=== PATIENT | male | born 1930 | race Caucasian/White ===

== ENCOUNTER 2017-12-13 06:04 | Emergency (ER) | payer MEDICARE ==
[~2017-12-13] VITALS: Ht 182.9 cm; Wt 75.0 kg
[~2017-12-13 06:04] MED LIST: (None)3.5 GM OD; ALBUTEROL S2.5 MG/.5 IN; ASPIRIN EC325 MG PO; COMBIVENT INH; DIOVAN320 MG PO; DOCUSATE SOD100 MG PO; DUONEB IN; FERROUS SULFAT325 MG PO; FLEXERIL OR; GENTAMICIN15 ML/BTL OP; HYDROCHLORO25 MG/TAB PO; KEFLEX500 MG PO; LEVAQUIN750 MG PO; LISINOP/HCTZ1 TA1 PO; LOPRESSOR25 MG PO; LOPRESSOR50 MG PO; LORTAB 5-325 MG1 TAB PO; METOPROL TAR100 M1 PO; METOPROL TAR25 MG PO; MUCINEX MAXIM1200 MG PO; OMEPRAZOLE20 MG PO; PERCOCET 10/31 COMBO PO; POOR HISTORIAN; PROVENTIL0.083 % INH; SIMVASTATIN40 MG PO; SULFACET SOD10 % OP; SYMBICORT1 AE1 IN; ULTRAM50 M1 PO; VENTOLIN HFA IN; [UNRECOGNIZED DRUG - REMARK]
[2017-12-13 06:40] LABS: IMMATURE GRANULOCYTES 0.2 % (0.0-5.0); MEAN CELL VOLUME 90.1 fL CALC (80.0-100.0); MEAN CORPUSCULAR HGB 28.1 pG CALC (26.0-32.0); MEAN CORPUSCULAR HGB CONC 31.2 g/L CALC (32.0-36.0); NEUT# 2.7 thou/uL (1.82-7.42); RED BLOOD COUNT 3.84 mill/uL (4.70-6.10); RED CELL DISTRI WIDTH 14.6 % (11.5-15.5)
[2017-12-13 06:41] LABS: HEMATOCRIT 34.6 % (39.0-50.0); HEMOGLOBIN 10.8 g/dl (14.0-18.0)
[2017-12-13 07:04] LABS: ALBUMIN 3.4 g/dL (3.2-5.0); ALKALINE PHOSPHATASE 84 u/l (38-126); ANION GAP 12 (6-22 (CALC)); BILIRUBIN, TOTAL 0.4 mg/dL (0.0-1.4); BUN 40 mg/dL (8-23); BUN/CREATININE RATIO 44 (12-20 (CALC)); CARBON DIOXIDE 31 mmol/l (22-30); CHLORIDE 101 mmol/l (95-108); CREATININE 0.9 mg/dL (0.7-1.3); GFR > 60 ML/MIN (>=60 (CALC)); GFR FOR AFR.AMER. > 60 ML/MIN (>=60 (CALC)); POTASSIUM 4.4 mmol/l (3.5-5.1); SGOT/AST 26 u/l (19-48); SODIUM 140 mmol/l (137-146); TOTAL PROTEIN 7.4 g/dL (6.3-8.2)
[2017-12-13 07:07] LABS: MYOGLOBIN 167 ng/mL (0 - 121)
[2017-12-13] MEDS ORDERED: FUROSEMIDE40 MG PO (08:18)
[2017-12-13 08:19] LABS: URINE BILIRUBIN - DIPSTICK NEGATIVE (NEGATIVE); URINE BLOOD DIPSTICK NEGATIVE (NEGATIVE); URINE CLARITY CLEAR; URINE COLOR YELLOW; URINE GLUCOSE - DIPSTICK NEGATIVE (NEGATIVE); URINE KETONE NEGATIVE (NEGATIVE); URINE LEUK ESTERASE NEGATIVE (NEGATIVE); URINE NITRITE - DIPSTICK NEGATIVE (Negative); URINE PROTEIN - DIPSTICK NEGATIVE (NEG-TRACE); URINE UROBILINOGEN - DIPSTICK 0.2 E.U./dL (0.2)
[2017-12-13] MEDS ORDERED: POT CHLORIDE20 ME3 PO (08:23)
[2017-12-13] MEDS ORDERED: VITAMIN C500 M6 PO (08:24)
[2017-12-13] MEDS ORDERED: PROAIR HFA108 MCG/AC IN (08:31)
[2017-12-13 11:03] VITALS: BP 132/68
== END 2017-12-13 11:27 | disposition home or self-care (01) ==
LOC: ED 06:04
PROVIDERS: Emergency Medicine
PROC: 0HQCXZZ Repair Left Upper Arm Skin, External Approach (ICD-10-PCS; principal; 2017-12-13)
DX: S41.112A Laceration without foreign body of left upper arm, initial encounter (principal); S69.82XA Other specified injuries of left wrist, hand and finger(s), initial encounter; S00.83XA Contusion of other part of head, initial encounter; W19.XXXA Unspecified fall, initial encounter; Y92.008 Other place in unspecified non-institutional (private) residence as the place of occurrence of the external cause

== ENCOUNTER 2017-12-13 18:11 | Inpatient (IN) | payer MEDICARE ==
[~2017-12-13] VITALS: Ht 182.9 cm; Wt 50.0 kg
[~2017-12-13 18:11] MED LIST changes: +FUROSEMIDE40 MG PO; +POT CHLORIDE20 ME3 PO; +PROAIR HFA108 MCG/AC IN; +VITAMIN C500 M6 PO
--- NOTE | 2017-12-13 18:11 | NUR ---
PT ARRIVES VIA EMS, ALERT AND ORIENTED TO SELF. PT HAD UNWITNESSED FALL AT HOME ,PT STATES HE DOES NOT REMEMBER FALLING. DAUGHTER STATES HE WAS SITTING IN RECLINER AND SHE WENT NEXT DOOR TO GET HER SON AND PT WAS ON THE FLOOR WITH LT HAND BLEEDING. DAUGHTER STATES PT WAS ALERT AND COHERENT.
[2017-12-13 18:59] LABS: HEMATOCRIT 33.1 % (39.0-50.0); HEMOGLOBIN 10.3 g/dl (14.0-18.0); IMMATURE GRANULOCYTES 0.3 % (0.0-5.0); MEAN CELL VOLUME 90.9 fL CALC (80.0-100.0); MEAN CORPUSCULAR HGB 28.3 pG CALC (26.0-32.0); MEAN CORPUSCULAR HGB CONC 31.1 g/L CALC (32.0-36.0); NEUT# 4.92 thou/uL (1.82-7.42); RED BLOOD COUNT 3.64 mill/uL (4.70-6.10); RED CELL DISTRI WIDTH 14.7 % (11.5-15.5)
--- NOTE | 2017-12-13 19:15 | NUR ---
PT GHAS OLD DRIED FECES IN THE JEANS WHICH ARE REMOVED,PEPITO CARE DONE THERE IS A 2MM SKIN DERMAL PRESSURE SORE ON THE L BUTTOCKS THAT IS CLEAN PINK WITHOUT DRAINAGE OR ODOR.SKIN CARE AND SKIN DSG APPLIED.THERE IS A SKIN TEAR ON THE L CHEST WALL THAT IS CLEANED STERISTRIPS APPLIED AND NEOSPORIN OINT WITH DSD APPLIED.DR Calvin INFORMED OF BOTH WOUNDS
[2017-12-13 19:18] LABS: ALBUMIN 3.1 g/dL (3.2-5.0); ALKALINE PHOSPHATASE 69 u/l (38-126); ANION GAP 12 (6-22 (CALC)); BILIRUBIN, TOTAL 0.5 mg/dL (0.0-1.4); BUN 43 mg/dL (8-23); BUN/CREATININE RATIO 42 (12-20 (CALC)); CARBON DIOXIDE 31 mmol/l (22-30); CHLORIDE 98 mmol/l (95-108); GFR > 60 ML/MIN (>=60 (CALC)); GFR FOR AFR.AMER. > 60 ML/MIN (>=60 (CALC)); SGOT/AST 26 u/l (19-48); SODIUM 135 mmol/l (137-146); TOTAL PROTEIN 6.8 g/dL (6.3-8.2)
[2017-12-13 19:25] LABS: POTASSIUM 5.6 mmol/l (3.5-5.1)
[2017-12-13 19:30] LABS: MYOGLOBIN 223 ng/mL (0 - 121)
--- NOTE | 2017-12-13 20:30 | NUR ---
PT REC'ED WARM BLANKET ALERT AND APPROPRIATE CONVERSATIONS NO DISTRESS W/P/D SKIN
--- NOTE | 2017-12-13 21:15 | NUR ---
SBAR printed to floor
--- NOTE | 2017-12-13 22:05 | NUR ---
PHONE REPORT TO NURSE JURADO ON MS2
--- NOTE | 2017-12-13 22:08 | NUR ---
PT TRANSPORTED TO [facility] ON TELE IN STABLE CONDITION
[2017-12-13 22:20] VITALS: BP 128/83
--- NOTE | 2017-12-13 22:20 | NUR ---
PT ARRIVED TO THE FLOOR VIA STRETCHER ACCOMPANIED BY KATELYNN AND ED NURSE. PT APPEARS TO BE IN STABLE CONDITION. PT TRANSFERRED TO HOSPITAL UNIT BED FROM STRETCHER AND CLEANED OF SMALL AMOUNT OF INCONTINENT STOOL AND PEPITO-CARE. PT HAS SMALL PRESSURE WOUND TO L.BUTTOCKS AND DRESSINGS TO LEFT ARM IN TWO PLACES AND L.HAND. DRESSING TO BACK OF RIB CAGE/FLANK. EDEMA NOTED TO FEET/BILAT AND REDNESS TO ANKLES. BRUISING TO HEAD AND FACE AROUND EYE SOCKETS AND TO LEFT RELIGIOUS AREA. BRUISING TO L ARM AND R.SHOULDER BLADE. PT DENIES ANY PAIN OR DISCOMFORT AT THIS TIME. LOCX3, BUT PT'S GRANDAUGHTER REPORTS THAT HE CAN GET COMFUSED AND FORGETFUL AND MAY NEED THE BED ALARM ON FOR SAFETY MEASURE/BED ALARM ON. PT POSITIONED FOR COMFORT, PROVIDED PO FLUIDS AND ORIENTED TO ROOM,CALL SYSTEM,LIGHTS AND REPORTING NEEDS. WILL CONTINUE TO REINFORCE NEEDED. BED ALARM ON AND DOOR OPEN. BED IN LOWEST POSITION.
--- NOTE | 2017-12-14 00:15 | NUR ---
PT ASSISTED USING URINAL, 25CC OF DARK YELLOW URINE EMPTIED FROM URINAL. DENIES ANY OTHER NEEDS. TWO PILLOWS PROVIDED.
[2017-12-14 01:00] VITALS: BP 128/70
--- NOTE | 2017-12-14 02:51 | NUR ---
PT IS SLEEPING AT THIS TIME. NO S/S OF DISTRESS NOTED. CALL LIGHT AT SIDE AND BED ALARM ON.
--- NOTE | 2017-12-14 04:00 | NUR ---
PT CLEANED OF INCONTINENT STOOL SMALL AMOUNT, PT USED URINAL OUTPUT OF 125 CLEAR DARK YELLOW URINE. PICTURES TAKEN FOR CHART AND DRESSING TO COCCYX AREA FOR PRESSURE WOUND STAGE 2. BARRIER CREAM TO RECTAL AREA FOR REDNESS. PT REPOSITIONED FOR COMFORT AND RELIEF OF PRESSURE POINTS TO SPINE AND COCCYX. CALL LIGHT AND BED ALARM IN PLACE.
[2017-12-14 04:06] VITALS: BP 134/74
--- NOTE | 2017-12-14 07:15 | NUR ---
BEDSIDE REPORT RECEIVED BY LULY. PT IS SLEEPING IN BED WITH NO S/S OF DISTRESS NOTED. BED ALARM IN PLACE FOR SAFETY AND CALL LIGHT IN REACH.
[2017-12-14 07:48] VITALS: BP 116/58
--- NOTE | 2017-12-14 08:00 | NUR ---
ASSESSMENT DONE TELE IN PLACE. LUNG SOUND DIMINISHED. PT IS A&O X3 BUT FORGETFUL AT TIMES. PT DENIES PAIN AT THIS TIME. PT HAS BRUISES IN HIS FACE. PT STATED THAT HE HAD FELL AT HOME YESTERDAY. NS 100 ML/HR INFUSING WELL. SAFETY PRECAUTIONS REINFORCED AND CALL LIGHT IN REACH. BED ALARM IN PLACE.
[2017-12-14 09:36] LABS: HEMATOCRIT 29.9 % (39.0-50.0); HEMOGLOBIN 9.3 g/dl (14.0-18.0); MEAN CELL VOLUME 91.4 fL CALC (80.0-100.0); MEAN CORPUSCULAR HGB 28.4 pG CALC (26.0-32.0); MEAN CORPUSCULAR HGB CONC 31.1 g/L CALC (32.0-36.0); RED BLOOD COUNT 3.27 mill/uL (4.70-6.10); RED CELL DISTRI WIDTH 14.7 % (11.5-15.5)
[2017-12-14 10:18] LABS: BUN 30 mg/dL (8-23); BUN/CREATININE RATIO 37 (12-20 (CALC)); CARBON DIOXIDE 27 mmol/l (22-30); CHLORIDE 103 mmol/l (95-108); CREATININE 0.8 mg/dL (0.7-1.3); GFR > 60 ML/MIN (>=60 (CALC)); GFR FOR AFR.AMER. > 60 ML/MIN (>=60 (CALC)); SODIUM 137 mmol/l (137-146)
[2017-12-14 10:21] LABS: ANION GAP 11 (6-22 (CALC)); POTASSIUM 4.1 mmol/l (3.5-5.1)
[2017-12-14 10:35] LABS: URINE BILIRUBIN - DIPSTICK NEGATIVE (NEGATIVE); URINE BLOOD DIPSTICK TRACE-INTACT (NEGATIVE); URINE COLOR YELLOW; URINE GLUCOSE - DIPSTICK NEGATIVE (NEGATIVE); URINE KETONE NEGATIVE (NEGATIVE); URINE LEUK ESTERASE NEGATIVE (NEGATIVE); URINE NITRITE - DIPSTICK NEGATIVE (Negative); URINE PH 5.5 (4.5-8.0); URINE PROTEIN - DIPSTICK NEGATIVE (NEG-TRACE); URINE UROBILINOGEN - DIPSTICK 0.2 E.U./dL (0.2)
[2017-12-14 10:37] LABS: URINE CLARITY CLEAR
--- NOTE | 2017-12-14 11:36 | NUR ---
EVAL WAS HELD OFF IN THE AM UNTIL X-RAY RESULT IS OUT, ADVISED BY .
[2017-12-14 11:55] VITALS: BP 101/48
--- NOTE | 2017-12-14 12:00 | NUR ---
PT IS EATING HIS LUNCH WITH NO S/S OF DISTRESS NOTED. TELE IN PLACE. PT DENIES PAIN AT THIS TIME. ICE PACK IN PLACE FOR RIGHT ANKLE. PT REFUSED ICE BACK ON LEFT SHOULDER. BED ALARM IN PLACE AND CALL LIGHT IN REACH.
--- NOTE | 2017-12-14 13:40 | NUR ---
JIMMY KABA AT BEDSIDE TO DISCUSS POC WITH GRANDDAUGHTER. PT IS SLEEPING IN BED WITH NO S/S OF DISTRESS NOTED.
--- NOTE | 2017-12-14 14:55 | NUR ---
O.T. RECEIVED ORDER FOR O.T. EVALUATION AND ATTEMPTED AT 11 A.M., HOWEVER, PER JESUS Francis HOLD ON THERAPY DUE TO POSSIBLE ANKLE/FOOT AND SHOULDER FRACTURES.
[2017-12-14 15:00] VITALS: BP 115/61
[2017-12-14 16:16] LABS: CHOLESTEROL HDL RATIO 2.7 (<4.4 (CALC))
--- NOTE | 2017-12-14 16:33 | NUR ---
MEDICATED PT WITH TYLENOL FOR PAIN SEE EMAR. PT DENIES ANY OTHER NEEDS AT THIS TIME. CALL LIGHT IN REACH. BED ALARM IN PLACE. GRANDDAUGHTER IN ROOM.
--- NOTE | 2017-12-14 19:39 | NUR ---
REPORT RECEIVED FROM DAY NURSE, PT SEEN AT BEDSIDE. HE IS AWAKE, BUT NO S/O DISTRESS AT THIS TIME. DENIES PAIN/N/V OR ANY OTHER DISTRESSES. CALL LIGHT NEXT TO HAND, BED ALARM ON.
[2017-12-14 20:00] VITALS: BP 113/56
--- NOTE | 2017-12-14 21:55 | NUR ---
AIDE IN WITH PT, CLEANED HIM OF INCONTINENT STOOL, ASSISTED IN USE OF URINAL. BEDDING CHANGED AND PT REPOSITIONED. PT DENIES PAIN AT THIS TIME. AND SHOWS NO S/S OF DISTRESS. DRESSING TO ARMS CHANGED AND PICTURES PLACED IN CHART. LEFT ARM HAS A GREAT AMOUNT OF BRUISING AND SKIN TEAR AREAS AROUND BRACHIAL AREA OF ARM. LEFT HAND DRESSING ALSO CHANGED, HAND HAS A LARGE SUTURED WOUND BETWEEN THUM AND INDEX FINGER. PT POSITIONED FOR COMFORT. LUNG SOUNDS ARE CLEAR, ABD FIRM NON-TENDER W/ACTIVE BOWEL SOUNDS. 2+EDEMA TO FEET BILATERALLY, BRUISES TO KNEES AND THROUGHOUT. MID SPINE AREA IS REDDENED FROM PRESSURE POINT, COCCYX HAS SMALL DECUBITIS ULCER WOUND ON LEFT BUTTOCK AREA AND IS REDDENED. WILL CONTINUE TO MONITOR AND REPOSITION NEEDED. CALL LIGHT IS AT SIDE AND PT REORIENTED TO ITS USE. BED ALARM IS ON.
[2017-12-15 00:12] VITALS: BP 120/63
--- NOTE | 2017-12-15 02:00 | NUR ---
PT IS SLEEPING IN LOW FOWLERS POSITION WITH LIGHTS AND TV OFF. IV FLUIDS ARE RUNNING ORDERS PROVIDE. NO S/S OF DISTRESS NOTED. PT REPOSITIONED AND CALL LIGHT AT SIDE.
[2017-12-15 05:16] VITALS: BP 151/77
[2017-12-15 05:19] LABS: HEMATOCRIT 29.9 % (39.0-50.0); HEMOGLOBIN 9.3 g/dl (14.0-18.0); MEAN CELL VOLUME 90.9 fL CALC (80.0-100.0); MEAN CORPUSCULAR HGB 28.3 pG CALC (26.0-32.0); MEAN CORPUSCULAR HGB CONC 31.1 g/L CALC (32.0-36.0); RED BLOOD COUNT 3.29 mill/uL (4.70-6.10); RED CELL DISTRI WIDTH 14.8 % (11.5-15.5)
[2017-12-15 05:44] LABS: ANION GAP 8 (6-22 (CALC)); BUN 26 mg/dL (8-23); BUN/CREATININE RATIO 36 (12-20 (CALC)); CARBON DIOXIDE 28 mmol/l (22-30); CHLORIDE 106 mmol/l (95-108); CREATININE 0.7 mg/dL (0.7-1.3); GFR > 60 ML/MIN (>=60 (CALC)); GFR FOR AFR.AMER. > 60 ML/MIN (>=60 (CALC)); POTASSIUM 4.6 mmol/l (3.5-5.1); SODIUM 138 mmol/l (137-146)
--- NOTE | 2017-12-15 07:00 | NUR ---
SHIFT CHANGE REPORT FROM RHIANNON, AWAKE AND ALERT SITTING UP IN BED, NO C/O DISCOMFORT, IVF INFUSING, TELE MONITOR IN PLACE, DRESSING TO LEFT HAND CDI, WILL CONTINUE TO MONITOR, CALL BRADLEY IN REACH.
[2017-12-15 07:59] VITALS: BP 152/80
[2017-12-15 11:54] VITALS: BP 141/74
--- NOTE | 2017-12-15 12:00 | NUR ---
SITTING UP IN BED HAVING MEAL, FAMILY MEMBERS VISITING, ALL NEEDS MET/ADDRESSED, CALL BRADLEY IN REACH.
--- NOTE | 2017-12-15 16:00 | NUR ---
RESTING IN BED, ALL NEEDS MET, WILL CONTINUE TO MONITOR.
[2017-12-15 16:03] VITALS: BP 149/82
[2017-12-15 19:14] VITALS: BP 157/91
--- NOTE | 2017-12-15 19:15 | NUR ---
BEDSIDE REPORT RECEIVED FROM DAY NURSE. PT IS IN HIGH FOWLERS POSITION W/LIGHTS ON AND TV OFF. PT LOCX3, DENIES ANY NEEDS. NO APPARANT DISTRESSES AT THIS TIME. WILL FOLLOW-UP WITH FULL ASSESSMENT AND MEDICATIONS ORDERED. PT ENCOURAGED TO CALL IF HE NEEDS ANY ASSISTANCE AND REORIENTED TO CALL LIGHT.
--- NOTE | 2017-12-15 21:56 | NUR ---
PT MEDICATED ORDERS PROVIDE. PT WAS SLEEPING I ENTERED THE ROOM. PT DENIES PAIN/N/V AT THIS TIME. PT REPOSITIONED IN BED AND ASSESSED. LUNG SOUNDS ARE CLEAR, ABD FIRM NON-TENDER WITH ACTIVE BOWEL SOUNDS. LOCX3, BRUISING TO LOWER AND UPPER EXT, DRESSING TO SKIN TEARS ON LEFT ARM ARE CDI.
[2017-12-16] VITALS (7 sets, daily range): BP systolic 130–167; BP diastolic 74–102
--- NOTE | 2017-12-16 04:50 | NUR ---
PT CLEANED OF INCONTINENT STOOL AND URINE AND REPOSITIONED W/PILLOWS. PT ASSISTED IN DRINKING PO FLUIDS AND PROVIDED APPLE JUICE. DENIES ANY OTHER NEEDS, CALL LIGHT AT SIDE.
--- NOTE | 2017-12-16 07:00 | NUR ---
SHIFT CHANGE REPORT FROM ARMAAN JURADO AWAKE AND ALERT RESTING IN BED, ASSISTED OOB TO RECLINER AND SET UP FOR MEAL AFTER DOING PEPITO-CARE, DENIED PAIN, CALL BRADLEY IN REACH, WILL CONTINUE TO MONITOR.
--- NOTE | 2017-12-16 19:30 | NUR ---
PATIENT RESTING IN BED INCONT OF URINE.PATIENT IS AWAKE ALERT AND ORIENTED TO PERSON AND PLACE. PATIENT GIVEN COMPLETE BED BATH BY THE DIRECT SUPPORT PROFESSIONAL CAREGIVER'S AND LINENS WERE CHANGED. PATIENT WITH BRUISING NOTED TO ALL EXTREMITIES. PATIENT WITH DRESSING TO LEFT THUMB AND HAND, LEFT UPPER INNER ARM INTACT. PATIENT WITH BRUISING TO FACE AND BOTH PERIORBITAL AREAS. RIGHT ARM IS SWOLLEN AND ELEVATED ON PILLOW. PATIENT WITH STAGE 2 TO BUTTOCKS AND BARRIER CREAM APPLIED AFTER BEING WASHED UP. INCONT OF SCANT AMT OF DARK BROWN STOOL. TELE MONITOR IN PLACE. IV SITE TO RIGHT FOREARM INTACT-WILL CHANGE AT BRENNAN TIME. IVF NS PATENT AND INFUSING AT 80CC/HR. SAFETY PRECAUTIONS REINFORCED. CALL LIGHT IN REACH. WILL CONT TO MONITOR.
--- NOTE | 2017-12-16 21:00 | NUR ---
PATIENT RESTING IN BED-IV SITE TO RIGHT FOREARM D/TRISTAN-EMS SITE. NEW IV SITE STARTED TO LEFT FOREARM-#[id number] WITH GOOD BLOOD RETURN. IVF NS PATENT AND INFUSING AT 80CC/HR. CALL LIGHT IN REACH. WILL CONT TO MONITOR.
[2017-12-17] VITALS: BP 135/83
--- NOTE | 2017-12-17 | NUR ---
PATIENT TURNED AND REPOSITIONED ON HIS SIDE. RIGHT HAND AND ARM REMAINS ELEVATED ON PILLOW. IVF NS PATENT AND INFUSING LEFT FOREARM SITE. SITE REMAINS HEALTHY AT THIS TIME. NO COMPLAINTS AT THIS TIME. BED ALARM IN PLACE FOR PATIENT SAFETY. CALL LIGHT IN REACH. WILL CONT TO MONITOR.
[2017-12-17 04:12] VITALS: BP 140/79
--- NOTE | 2017-12-17 04:30 | NUR ---
PATIENT [id number] DONE AND PATIENT TURNED AND REPOSITIONED. IVF PATENT AND INFUSING AT 80CC/HR VIA LEFT FOREARM SITE. TELE MONITORING DEVICE IN PLACE. RIGHT HAND ELEVATED ON PILLOW. BED ALARM IN PLACE FOR PATIENT SAFETY. CALL LIGHT IN REACH. WILL CONT TO MONITOR.
--- NOTE | 2017-12-17 07:15 | NUR ---
REPORT RECEIVED BY MARIPOSA. PT IS RESTING IN BED WITH NO S/S OF DISTRESS NOTED. PO FLUIDS PROVIDED PER PT REQUEST. PT DENIES ANY OTHER NEEDS AT THIS TIME. SAFETY PRECAUTIONS REINFORCED AND CALL LIGHT IN REACH.
[2017-12-17 07:38] VITALS: BP 152/87
--- NOTE | 2017-12-17 08:00 | NUR ---
PT IS SITTING IN RECLINER. ELEVATED LEGS AND RIGHT ARM IN PILLOW. ASSESSMENT DONE TELE IN PLACE. LUNG SOUND DIMINISHED/ NON-PRODUCTIVE COUGH. PT IS A&O X2. PT DENIES PAIN AT THIS TIME. LEFT ARM DRESSING IN PLACE. ICE PACK APPLIED TO RIGHT ANKLE. NS 80ML/HR INFUSING WELL. CALL LIGHT IN REACH.
--- NOTE | 2017-12-17 10:59 | NUR ---
Spoke with nursing prior to seeing pt. He had just returned to bed after being OOB to chair x 1 hr. He Was without c/o pain voiced. LE ex performed in bed x 20 reps. Pt moved supine to sit with mn assist to scoot forward on edge of bed. Min assist required for sit to stand. Pt ambulated 2 x 25' with RW and CGA. He denied SOB. Pt returned to supine, positioned correctly with call small in reach. Pt reminded to have assist with mobility.
[2017-12-17 11:00] VITALS: BP 129/61
--- NOTE | 2017-12-17 12:15 | NUR ---
SETUP PT FOR LUNCH AND NO S/S OF DISTRESS NOTED. PT DENIES ANY OTHER NEEDS AT THIS TIME. CALL LIGHT IN REACH.
[2017-12-17] MEDS ORDERED: PREDNISONE10 MG PO (12:25)
[2017-12-17] MEDS ORDERED: VANTIN200 M1 PO (12:25)
[2017-12-17] MEDS ORDERED: FERROUS SULFAT325 MG PO (12:25)
[2017-12-17] MEDS ORDERED: ZITHROMAX500 MG PO (12:25)
--- NOTE | 2017-12-17 16:15 | NUR ---
Discharge instructions given. Patient verbalizes understanding of same. Discharged in stable condition via Wheelchair to *Other with family. All belongings sent with pt. REPORT GIVEN TO AARON FROM SIGNATURE.
== END 2017-12-17 16:15 | DRG 194 ==
LOC: ED 18:11 → ED-I 20:30 → ED 21:29 → MS2 21:30
PROVIDERS: Emergency Medicine; Nurse Practitioner Family; ADMIT Internal Medicine; ATTEND Internal Medicine
PROC: 0HQGXZZ Repair Left Hand Skin, External Approach (ICD-10-PCS; principal; 2017-12-13)
PROC: 0HQCXZZ Repair Left Upper Arm Skin, External Approach (ICD-10-PCS; 2017-12-13)
DX: J18.9 Pneumonia, unspecified organism (principal); J44.0 Chronic obstructive pulmonary disease with (acute) lower respiratory infection; G93.49 Other encephalopathy; Z68.1 Body mass index [BMI] 19.9 or less, adult; J44.1 Chronic obstructive pulmonary disease with (acute) exacerbation; I10 Essential (primary) hypertension; E78.5 Hyperlipidemia, unspecified; E87.5 Hyperkalemia; E86.0 Dehydration; D50.9 Iron deficiency anemia, unspecified; R62.7 Adult failure to thrive; R63.6 Underweight; L89.152 Pressure ulcer of sacral region, stage 2; H91.90 Unspecified hearing loss, unspecified ear; S61.012A Laceration without foreign body of left thumb without damage to nail, initial encounter; S93.401A Sprain of unspecified ligament of right ankle, initial encounter; S63.501A Unspecified sprain of right wrist, initial encounter; S42.141A Displaced fracture of glenoid cavity of scapula, right shoulder, initial encounter for closed fracture; W19.XXXA Unspecified fall, initial encounter; S41.112D Laceration without foreign body of left upper arm, subsequent encounter; S63.502D Unspecified sprain of left wrist, subsequent encounter; S00.83XD Contusion of other part of head, subsequent encounter; W19.XXXD Unspecified fall, subsequent encounter; Z87.11 Personal history of peptic ulcer disease; Z85.46 Personal history of malignant neoplasm of prostate; Z87.891 Personal history of nicotine dependence; Z91.81 History of falling; S09.90XA Unspecified injury of head, initial encounter; S41.112A Laceration without foreign body of left upper arm, initial encounter; S69.82XA Other specified injuries of left wrist, hand and finger(s), initial encounter; S00.83XA Contusion of other part of head, initial encounter; Y92.008 Other place in unspecified non-institutional (private) residence as the place of occurrence of the external cause
CPT/HCPCS: G0378; J1650